=== PATIENT | female | born 1940 | race Caucasian/White ===

== ENCOUNTER 2019-04-25 17:15 | Emergency (ER) | payer MEDICARE, OTHER ==
[~2019-04-25] VITALS: Ht 172.7 cm; Wt 79.0 kg
[~2019-04-25 17:15] MED LIST: ATEN25TA42 PO; MECL-75 PO; OLME20TA17 PO; SIMV40TA18 PO
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
[2019-04-25] MEDS ORDERED: IBUPROFEN 400 MG TABLET. PO ONE (18:45)
[2019-04-25] MEDS ORDERED: ORPHENADRINE CITRATE 60 MG/2 ML VIAL. IM ONE (18:45)
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
[2019-04-25] MEDS ORDERED: ORPH-16 PO (19:12)
--- NOTE | 2019-04-25 19:25 | RAD ---
Exam: Pelvis with left hip 2 views INDICATION: Pain TECHNIQUE: Frontal view of the pelvis with frontal and frog-leg lateral views of the left hip Comparisons: None FINDINGS: Mild osteopenia. No acute or healed fractures. Soft tissues are unremarkable. There is severe degenerative change at the left hip joint with osseous remodeling. IMPRESSION: Severe degenerative change at the left hip without acute osseous abnormality identified. If the Patient is acutely unable to bear weight MRI to rule out occult hip fracture is recommended. Electronically signed by: Archana Monroe MD (04/25/2019 7:22 PM) [facility]
[2019-04-25 19:28] VITALS: BP 138/83
== END 2019-04-25 19:28 | disposition home or self-care (01) ==
LOC: ER 17:15
DX: S16.1XXA Strain of muscle, fascia and tendon at neck level, initial encounter (principal); S46.911A Strain of unspecified muscle, fascia and tendon at shoulder and upper arm level, right arm, initial encounter; M25.552 Pain in left hip; E78.5 Hyperlipidemia, unspecified; I10 Essential (primary) hypertension; Z90.89 Acquired absence of other organs; V89.2XXA Person injured in unspecified motor-vehicle accident, traffic, initial encounter; Y93.89 Activity, other specified; Y92.89 Other specified places as the place of occurrence of the external cause; Y99.8 Other external cause status
CPT/HCPCS: 70450; 72125; 73502; 96372; 99284; J2360

== ENCOUNTER → 2019-11-16 | Outpatient (CLI) | payer MEDICARE, OTHER ==
[~2019-11-16] MED LIST changes: +IOHEXOL 300 MG/ML 75 ML VIAL. IV ONE; +ORPH-16 PO
[2019-11-16 11:54] LABS: CALCIUM 9.2 mg/dL (8.5-10.1); CREATININE 1.2 mg/dL (0.6-1.0); GFR 43.2; POTASSIUM 4.8 mmol/L (3.5-5.1)
--- NOTE | 2019-11-16 13:15 | RAD ---
CT CHEST WO CONTRAST Indication: Cough Technique: Noncontrast CT imaging was performed of the chest, multiplanar reconstruction images submitted. One or more of the following individualized dose reduction techniques were utilized for this examination: 1. Automated exposure control 2. Adjustment of the mA and/or kV according to patient size 3. Use of iterative reconstruction technique. Comparison: None Findings: There is coronary calcification. There is no pericardial or pleural fluid. There is linear likely atelectasis of the right middle lobe, also to a lesser degree variably of other lobes bilaterally. There is scattered plaque of the thoracic aorta. No significantly enlarged nodes are identified of the chest. There is mild centrilobular emphysema with upper zone predominance. There is some dependent density in the distal trachea at the left. There is a tiny 0.2 cm left lower lobe nodule image 68 series 2. There is also a tiny 0.2 cm left lower lobe nodule image 45 series 2. 1.3 cm lingular focus of density image 69 series 2 may be due to atelectasis although would be difficult to exclude a nodule. There is multilevel thoracic degenerative disc disease and spondylosis. IMPRESSION: 1. There is bilateral atelectasis greatest of the right middle lobe. Focus of lingular density may be atelectasis although difficult to exclude a nodule for which 3 month follow-up recommended as per revised Fleischner guidelines. There are a couple of other tiny left lower lobe nodules. There is emphysema. 2. There is coronary calcification. 3. Nonspecific dependent density in the distal trachea is more likely due to mucus than mass. Electronically signed by: Josue Eid MD (11/16/2019 1:12 PM) [facility]
== END | disposition home or self-care (01) ==
LOC: CT 11:17
PROVIDERS: ATTEND Specialist
DX: J43.2 Centrilobular emphysema (principal); J98.4 Other disorders of lung; R91.1 Solitary pulmonary nodule; I25.10 Atherosclerotic heart disease of native coronary artery without angina pectoris; I70.0 Atherosclerosis of aorta; M51.34 Other intervertebral disc degeneration, thoracic region; M47.814 Spondylosis without myelopathy or radiculopathy, thoracic region; N18.3 Chronic kidney disease, stage 3 (moderate)
CPT/HCPCS: 36415; 71250; 80048

== ENCOUNTER → 2020-09-24 | Outpatient (CLI) | payer MEDICARE, OTHER ==
[~2020-09-24] MED LIST changes: -IOHEXOL 300 MG/ML 75 ML VIAL. IV ONE
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
== END ==
LOC: RAD 15:27
PROVIDERS: ATTEND Specialist
DX: S22.42XA Multiple fractures of ribs, left side, initial encounter for closed fracture (principal); X58.XXXA Exposure to other specified factors, initial encounter; Y93.89 Activity, other specified; Y92.89 Other specified places as the place of occurrence of the external cause; Y99.8 Other external cause status
CPT/HCPCS: 71046

== ENCOUNTER → 2021-07-23 | Outpatient (CLI) | payer MEDICARE, OTHER ==
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
== END ==
LOC: RAD 13:47
PROVIDERS: ATTEND Orthopaedic Surgery
DX: M19.012 Primary osteoarthritis, left shoulder (principal); M25.712 Osteophyte, left shoulder
CPT/HCPCS: 73030